=== PATIENT | male | born 1985 | race Caucasian/White ===

== ENCOUNTER 2022-04-05 14:05 | Emergency (ER) | payer OTHER ==
[2022-04-05] MEDS ORDERED: ASPIRIN 81 MG PO STA (14:13)
[2022-04-05] MEDS ORDERED: SODIUM CHLORIDE 0.9% 1,000 ML IV STA ×4 (14:13→17:08)
[2022-04-05] MEDS ORDERED: HEPARIN SODIUM 1,000 UN/ML (10ML VL) IV PRN (14:26)
[2022-04-05] MEDS ORDERED: HEPARIN SODIUM 1,000 UN/ML (10ML VL) IV ONE (14:26)
[2022-04-05] MEDS ORDERED: VERAPAMIL 2.5 MG/ML 2 ML AMP ONE (14:28)
[2022-04-05] MEDS ORDERED: HEPARIN SOD,PORK IN 0.45% NACL 25,000 UNIT in 0.45% NACL 1 250ML.BAG IV SCH ×2 (14:30→16:30)
[2022-04-05 14:32] LABS: Basophils # (A) 0.2 k/uL (0-0.2); Basophils % (A) 1 %; Eosinophils # (A) 0.2 k/uL (0-0.7); Eosinophils % (A) 1 %; HGB 18.7 gm/dL (13.0-17.5); Lymphocytes # (A) 2.9 k/uL (1.0-4.8); Lymphocytes % (A) 9 %; MCH 31.6 pg (25.0-35.0); MCHC 33.6 g/dL (31.0-37.0); Mean Platelet Volume 9.4; Monocytes # (A) 1.5 k/uL (0-1.0); Monocytes % (A) 5 %; Neutrophils % (A) 84 %; Platelet Count 156 k/uL (150-450); RBC 5.93 m/uL (4.30-5.90); RDW 13.8 % (11.5-15.5); WBC 32.3 k/uL (3.8-10.6)
[2022-04-05 14:44] LABS: HCT 55.8 % (39.0-53.0)
[2022-04-05 14:47] LABS: Neutrophils # (A) 27.3 k/uL (1.3-7.7)
--- NOTE | 2022-04-05 14:53 | XR ---
EXAMINATION TYPE: XR chest 1V portable DATE OF EXAM: 04/05/2022 Comparison: None Clinical History: 37-year-old male STEMI, chest pain Findings: Heart upper limits of normal in size. Aorta and pulmonary vasculature within normal limits. No consol idation or pleural effusion. Impression: Borderline heart size. No acute cardiopulmonary process.
--- NOTE | 2022-04-05 14:54 | XR ---
EXAMINATION TYPE: XR chest 1V confirm line [facility] DATE OF EXAM: 04/05/2022 COMPARISON: Earlier today HISTORY: 37-year-old male confirm line placement TECHNIQUE: Single frontal view of the chest is obtained. FINDINGS: Heart remains borderline enlarged. Aorta and pulmonary vasculature within normal limits. H azy peripheral lung densities likely due to portable technique and positioning. Right CVC tip within the right atrium. No consolidation or pleural effusion. No pneumothorax. IMPRESSION: New right CVC tip in the right atrium.
--- NOTE | 2022-04-05 14:54 | XR ---
EXAMINATION TYPE: XR chest 1V confirm line [facility] DATE OF EXAM: 04/05/2022 COMPARISON: Earlier today HISTORY: 37-year-old male confirm line placement TECHNIQUE: Single frontal view of the chest is obtained. FINDINGS: Heart remains borderline enlarged. Aorta and pulmonary vasculature within normal limits. H azy peripheral lung densities likely due to portable technique and positioning. Right CVC tip within the right atrium. No consolidation or pleural effusion. No pneumothorax. IMPRESSION: New right CVC tip in the right atrium.
[2022-04-05 14:59] LABS: Glucose,Whole Blood 90 mg/dL (70-110)
--- NOTE | 2022-04-05 15:01 | ED ---
Chest Pain HPI - General Chief Complaint: Chest Pain Stated Complaint: weakness Time Seen by Provider: 04/05/22 14:06 Source: patient, EMS Mode of arrival: EMS Limitations: physical limitation - History of Present Illness Initial Comments: This 37-year-old male presents with a complaint of some shortness of breath. He is brought in by EMS as priority 1. They state that he was hypotensive with a systolic in the 70s. The patient relates that he has been short of breath and having chest pain for the past one week. He states that the pain in his chest is in the lower sternal region. Both the chest pain and shortness breath or brought on with any minimal exertion. He complains of weakness. He apparently had 4 syncopal episodes earlier today. He denies any leg pain or swelling. He denies any history of DVT or PE. He denies any history of previous cardiac disease. She states that his only medical problems are that of asthma as well as hypertension. There is been no fevers but he has had some chills. No other complaints or modifying factors. He denies any previous similar incidents. He denies any coughing over the past week. He does relate having some night sweats. He admits to utilizing marijuana but denies regular tobacco or alcohol use. - Related Data Home Medications Medication Instructions Recorded Confirmed No Known Home Medications 04/05/22 04/05/22 Allergies Allergy/AdvReac Type Severity Reaction Status Date / Time No Known Allergies Allergy Verified 04/05/22 14:49 Review of Systems ROS Statement: Those systems with pertinent positive or pertinent negative responses have been documented in the HPI. ROS Other: All systems not noted in ROS Statement are negative. General Exam - General Exam Comments Initial Comments: GENERAL: The patient is well nourished and well hydrated. VITAL SIGNS: Heart rate, blood pressure, respiratory rate reviewed as recorded in nurse's notes. EYES: Pupils are round and reactive. Extraocular movements are intact. No conjunctival / lid redness or swelling. ENT: No external evidence of injury, swelling, or ecchymosis. Airway is patent. Throat is clear. NECK: Nontender. No swelling or evidence of injury. No subcutaneous emphysema. Trachea is midline. No thyroid mass. HEART: Regular rate and rhythm. Good peripheral pulses. LUNGS/CHEST: Breath sounds clear and equal bilaterally. No rales, rhonchi, or wheezes. No ecchymosis, subcutaneous emphysema, or tenderness. The patient is tachypneic. ABDOMEN: Abdomen soft without tenderness. No palpable masses or organomegaly. No peritoneal signs. No abdominal wall swelling or ecchymosis. EXTREMITIES: No extremity tenderness. Normal muscle tone and function. No thoracolumbar tenderness. NEUROLOGIC: Sensation is grossly intact. Cranial nerve exam reveals face is symmetrical, tongue is midline, speech is clear. SKIN: No abrasions or ecchymosis is noted. No induration or masses noted. Mild bluish hue noted to bilateral hands. PSYCHIATRIC: Alert and oriented. Appropriate behavior and judgment. Limitations: physical limitation Course Vital Signs 04/05/22 04/05/22 04/05/22 14:09 14:14 14:19 Temperature Pulse Rate 75 77 79 Respiratory 20 22 22 Rate Blood Pressure 107/62 106/89 112/54 O2 Sat by Pulse 98 100 99 Oximetry 04/05/22 04/05/22 04/05/22 14:30 14:51 15:24 Temperature Pulse Rate 75 75 77 Respiratory 22 22 18 Rate Blood Pressure 111/59 115/44 116/67 O2 Sat by Pulse 98 100 95 Oximetry 04/05/22 04/05/22 04/05/22 15:27 16:13 16:22 Temperature 96.4 F L Pulse Rate 82 84 Respiratory 18 20 Rate Blood Pressure 117/85 O2 Sat by Pulse 99 Oximetry 04/05/22 04/05/22 16:23 16:29 Temperature Pulse Rate 86 Respiratory 18 Rate Blood Pressure O2 Sat by Pulse 94 L Oximetry Chest Pain MDM - MDM The patient was seen and examined. All diagnostics are reviewed. EKG as reviewed per EMS which does show some ST depression in leads V3 through V5. The patient has a sinus rhythm on this EKG. The EKG in the emergency department shows a normal sinus rhythm at a rate of 72. There is ST depression in leads V2 through V5 consistent with posterior myocardial infarction. The patient also has some ST depression and T-wave inversion in the inferior leads. The NC intervals 155, QS duration is 134, and the QTC intervals 492. The patient is placed on the forest resource specialist. Oxygen is applied. Defibrillator pads are in place. The nursing staff had multiple attempts at placement of IV and these were unsuccessful. It is felt as though patient needs emergent central venous line placement. Risks benefits are discussed and he is agreeable. The patient was prepped and draped in the usual sterile fashion. Under strict health information technician nique, the patient had lidocaine injected into the subclavian region. The subclavian vein was cannulated on first attempt. The line was placed without incident. Initial x-ray does not show any acute processes. The repeat x-ray shows excellent placement is no evidence of pneumothorax. No pneumonia is identified. The possibility of some cardiomegaly is suspected per my review x- ray. A STEMI alert is placed. Cardiology does present and does not feel as though patient is having a STEMI. They do not recommend emergent heart catheterization. Patient receives aspirin as well as heparin intravenously. The did order an echocardiogram which does show some evidence of right heart strain. The patient's laboratory does show multiple abnormalities including significant elevation of the white blood cell count at 32,000, troponin is elevated, liver function studies are elevated, d-dimer is elevated, and acute kidney injury is evident, potassium is elevated. Urinalysis does not show any evidence of infection. The patient does receive Rocephin intravenously empirically. It is felt as though he likely does have an infection but the exact cause is not definitively determined. He potentially could have pneumonia that is not identifiable on the x-ray. He potentially could have bacteremia. His drug screen came back positive for amphetamines and methamphetamines. The patient denies any other drug usage other than marijuana. Other infectious etiologies certainly are possible. Case was rediscussed with Dr. Mclean from cardiology in their consult is appreciated and they do recommend pulmonology and infectious disease to be consult. Case is discussed with Dr. Ledbetter and he also recommends adding vancomycin, a one-time dose. He also recommends venous Doppler studies of lower extremity and these are added. The patient did not have the CTA of the chest is patient has a GFR of 27. This was canceled and a VQ scan will be ordered. Attempts were made at titrating down his oxygen to a nasal cannula but his oxygen level dropped down into the 80s. He is continued on the nonrebreather. The patient's blood pressure did drop down again into the 80s systolic and additional IV fluids are given. Case is discussed with Dr. King from internal medicine and he is agreeable with admission. Patient will be admitted to the intensive care unit. Approximately 60 minutes of cri tical care time is utilized and treatment the patient and this does not include time necessary for the procedure. Disposition Clinical Impression: Chest pain, Dyspnea, Syncope, Acute kidney injury, Hepatic failure, Leukocytosis, Acute electrocardiogram changes, Elevated troponin, Hyperkalemia, Hypotension, Dehydration, Acute respiratory failure, Elevated d-dimer, Methamphetamine abuse, Amphetamine abuse, Marijuana abuse Disposition: ADMITTED IP TO THIS HOSP Condition: Serious Is patient prescribed a controlled substance at d/c from ED?: No Referrals: None,Stated [Primary Care Provider] - 1-2 days Time of Disposition: 16:49 Decision Date: 04/05/22 Decision Time: 16:49
[2022-04-05 15:14] LABS: ABG Base Excess -13.3 mmol/L; ABG HCO3 14 mmol/L (21-25); ABG Oxygen Saturation 99.2 % (94-97); ABG PCO2 30 mmHg (35-45); ABG PH 7.27 (7.35-7.45); ABG PO2 178 mmHg (83-108); ABG TCO2 15 mmol/L (19-24)
--- NOTE | 2022-04-05 15:19 | P.CRDCN ---
History of Present Illness Consult date: 04/05/22 History of present illness: I recieved STEMI alert call on this patient at 2:20 PM. I spoke to the ER physician- was told patient is having posterior wall myocardial infarction and that the STEMI team has been activated. I asked cardiology nurse practitioner to evaluate the patient in the ER. Following evaluation she told me that she did not see any significant ST segment elevation. I went to the emergency room and evaluated the patient. There was no evidence of STEMI and hence I cancelled the STEMI alert. patient presented to the hospital with symptoms of not feeling well shortness of breath weakness and generalized body aches. He had loss of appetite. Stated that he did not eat anything since lunch the day before. He was in respiratory distress and had a nonrebreather on. Initially he was hypotensive but at the time of my evaluation his blood pressure has improved. Symptoms have been going on for more than a week. His mother and father were in the emergency room and on talking to the mother and found out the patient was also having chills. patient did not have any known cardiac history. Apparently was diagnosed with hypertension recently been started on some medication and his blood pressure became too low. On exam he did not have a murmur, there were occasional rhonchi bilaterally and his extremities appear cyanotic. I told the ER physician that we are not dealing with an acute coronary syndrome. we should await his initial workup and continue with supportive care. I requested a drug screen,covid test , and echo cardiogram to assess LV function. I received a page from the ER physician at 3.30 PM about patient's labs. Patient had elevated creatinine suggestive of acute renal failure, elevated d-dimer, elevated troponin and elevated white cell count. his liver enzymes were elevated. His white cell count is over 30. his drug screen is positive for methamphetamines. I requested the ER physician to consult pulmonary critical care physician for further care, consider a VQ scan if patient is clinically stable and continue IV heparin. An echocardiogram showed preserved LV function with enlarged right ventricle. HISTORY OF PRESENT ILLNESS: This is a 37-year-old male with a past medical history significant for hypertension, asthma, and marijuana use. Patient does not follow with a firefighter. We have been asked to see the patient in consultation for STEMI. Patient examined at the bedside in the ER after a STEMI alert was activated. Patient states he has been feeling unwell. He reports some intermittent chest pains over the past two weeks. However, he denies having chest pain today or at the time of my examination. He does report shortness of breath and is currently on a nonrebreather. He also reports weakness and body aches at home. He reports chills but no fever. He reports decreased appetite. He reports using marijuana. He denies any other drug use. Denies alcohol or nicotine dependence. Patient was found to be hypotensive on admission. WBC found to be elevated at 32. * EKG reveals sinus mechanism with ST depression and TWI in inferior leads, along with V2-V5. Repeat EKG reveals improvement in ST depression. * Chest xray heart remains borderline enlarged. aorta and pulmonary vasculature within normal limits. * Laboratory data: WBC 32.3. Hemoglobin 18.7. Platelet count 156. Additional lab results are currently pending. REVIEW OF SYSTEMS: At the time of my exam: CONSTITUTIONAL: Denies fever or chills. HEENT: Denies blurred vision, vision changes, or eye pain. Denies hemoptysis CARDIOVASCULAR: Denies chest pain. Denies orthopnea. Denies PND. Denies palpitations RESPIRATORY: Denies shortness of breath. GASTROINTESTINAL: Denies abdominal pain. Denies nausea or vomiting. HEMATOLOGIC: Denies bleeding disorders. GENITOURINARY: Denies any blood in urine. SKIN: Denies pruitis. Denies rash. PHYSICAL EXAM: VITAL SIGNS: Reviewed. GENERAL: Well-developed in no mild distress. HEENT: Head is normocephalic. Pupils are equal, round. Sclerae anicteric. Mucous membranes of the mouth are moist. Neck supple. No JVD or thyromegaly LUNGS: Respirations even and unlabored. Lungs diminished with rhonchi noted. HEART: Regular rate and rhythm. S1 and S2 heard. ABDOMEN: Soft. Nondistended. Nontender. EXTREMITIES: Normal range of motion. No clubbing or cyanosis. Peripheral pulses intact. No lower extremity edema. extremities appear cyanotic. NEUROLOGIC: Awake. Oriented x 3. ASSESSMENT: Intermittent chest pains and SOB, x 2 weeks Body aches, weakness, and decreased appetite Abnormal EKG, however no STEMI identified Leukocytosis Acute hypoxic respiratory failure Hypotension History of hypertension History of asthma Marijuana use PLAN: STEMI alert activated. However, EKG and clinical presentation not consistent with STEMI. Will hold off on sending patient to seed analysis laboratory assistant at this time. Check D-Dimer Obtain CT chest Obtain 2D echo to assess cardiac structure and function Continue to trend troponins Check Covid Recommend pulmonary and infectious disease consult Further recommendations pending patient course Nurse practitioner note has been reviewed by physician. Signing provider agrees with the documented findings, assessment, and plan of care. Medications and Allergies Home Medications Medication Instructions Recorded Confirmed Type No Known Home Medications 04/05/22 04/05/22 History Allergies Allergy/AdvReac Type Severity Reaction Status Date / Time No Known Allergies Allergy Verified 04/05/22 14:49 Physical Exam Vitals: Vital Signs Pulse Resp BP Pulse Ox 04/05/22 14:51 75 22 115/44 100 04/05/22 14:30 75 22 111/59 98 04/05/22 14:19 79 22 112/54 99 04/05/22 14:14 77 22 106/89 100 04/05/22 14:09 75 20 107/62 98 Intake and Output 04/04/22 04/05/22 04/05/22 22:59 06:59 14:59 Other: Weight 79.379 kg Results 04/05/22 14:25 04/05/22 17:08 CBC 04/05/22 Range/Units 14:25 WBC 32.3 H (3.8-10.6) k/uL RBC 5.93 H (4.30-5.90) m/uL Hgb 18.7 H (13.0-17.5) gm/dL Hct 55.8 H (39.0-53.0) % Plt Count 156 (150-450) k/uL Current Medications Generic Name Dose Route Start Last Admin Trade Name Freq PRN Reason Stop Dose Admin Heparin Sodium (Porcine) 0 unit 04/05/22 14:26 Heparin Sodium 1,000 Un/Ml (10ml Vl) IV PER PROTOCOL PRN Low PTT Protocol Sodium Chloride 1,000 mls @ 100 mls/hr 04/05/22 14:13 Saline 0.9% IV 04/06/22 00:12 .Q10H STA Sodium Chloride 1,000 mls @ 999 mls/hr 04/05/22 14:13 04/05/22 14:55 Saline 0.9% IV 04/05/22 15:13 999 mls/hr .Q1H1M STA Administration Heparin Sodium/Sodium Chloride 250 mls @ 9.525 mls/hr 04/05/22 14:30 25,000 unit/ Sodium Chloride IV .Q24H [facility] Protocol 12 UNITS/KG/HR Intake and Output 04/04/22 04/05/22 04/05/22 22:59 06:59 14:59 Other: Weight 79.379 kg Patient Weight 04/06/22 06:59 Weight 79.379 kg 04/05/22 14:25
[2022-04-05] MEDS ORDERED: IPRATROPIUM-ALBUTEROL 3 ML NEB INHALATION STA (15:24)
[2022-04-05 15:27] VITALS: TEMP 96.4
[2022-04-05 15:29] LABS: Calcium 8.5 mg/dL (8.4-10.2); Magnesium 2.2 mg/dL (1.6-2.3); Potassium 5.8 mmol/L (3.5-5.1); Total Bilirubin 3.6 mg/dL (0.2-1.3)
[2022-04-05 15:44] LABS: Appearance,Urine Cloudy (Clear); Bilirubin,Urine Negative (Negative); Blood,Urine Trace (Negative); Color,Urine Yellow; Glucose,Urine (UA) Negative (Negative); Hyaline Casts,Urine 93 /lpf (0-2); Ketones,Urine Trace (Negative); Leukocyte Esterase,Urine Negative (Negative); Mucus,Urine Many /hpf; Nitrite,Urine Negative (Negative); Protein,Urine 2+ (Negative); RBC,Urine 3 /hpf (0-5); Specific Gravity,Urine 1.016 (1.001-1.035); Squamous Epithelial Cell,Urine 2 /hpf (0-4); Urobilinogen,Urine <2.0 mg/dL (<2.0); WBC,Urine 4 /hpf (0-5)
[2022-04-05 15:51] LABS: Amphetamine Screen,Urine Detected (NotDetected); Barbiturate Screen,Urine Not Detected (NotDetected); Benzodiazepines Screen,Urine Not Detected (NotDetected); Cocaine Screen,Urine Not Detected (NotDetected); Methadone Screen, Urine Not Detected (NotDetected); Opiate Screen,Urine Not Detected (NotDetected); Oxycodone Screen, Urine Not Detected (NotDetected); Phencyclidine Screen,Urine Not Detected (NotDetected); Tricyclic Antidepressant,Urine Not Detected (NotDetected); Urn Cannabinoid Scrn Detected (NotDetected)
[2022-04-05 15:57] LABS: Partial Thromboplastin Time 106.4 sec (22.0-30.0); Prothrombin Time 20.2 sec (9.0-12.0)
[2022-04-05] MEDS ORDERED: SODIUM BICARB 8.4% 50 ML SYR (1 MEQ/ML) IV ONE (16:22)
[2022-04-05] MEDS ORDERED: SODIUM POLYSTYRENE SULFONATE 15 GM/60 ML BOTTLE PO ONE (16:22)
[2022-04-05] MEDS ORDERED: VANCOMYCIN 1,000 MG in SODIUM CHLORIDE 0.9% 250 ML IVPB STA (16:43)
[2022-04-05] MEDS ORDERED: IPRATROPIUM-ALBUTEROL 3 ML NEB INHALATION PRN (16:57)
[2022-04-05] MEDS ORDERED: ACETAMINOPHEN TAB 325 MG TAB PO PRN (16:57)
[2022-04-05] MEDS ORDERED: NALOXONE 0.4 MG/ML 1 ML VIAL IV PRN (16:57)
[2022-04-05 17:09] VITALS: BP 118/72; PULSE 85; RESP 34
[2022-04-05] MEDS ORDERED: LORazepam 2 MG/ML INJ IV STA ×2 (17:10→17:12)
[2022-04-05] MEDS ORDERED: PANTOPRAZOLE 40 MG/10 ML VIAL IV SCH (17:15)
[2022-04-05] MEDS ORDERED: AMIODARONE 360 MG in DEXTROSE 5% IN WATER 200 ML IV ONE ×2 (17:34)
[2022-04-05] MEDS ORDERED: ALTEPLASE 50 MG VIAL IV STA (17:39)
[2022-04-05] MEDS ORDERED: AMIODARONE 450 MG in DEXTROSE 5% IN WATER 250 ML IV SCH ×2 (23:45)
--- NOTE | 2022-04-06 10:46 | CA ---
Transthoracic Echo Report Name: Lorne Antony Age: 37 Gender: M : 1985 Exam Date: 04/05/2022 15:07 Exam Location: [place] [facility] Ht (in): 67 Wt (lb): 175 Ordering Physician: Lexie Thomas Attending/Referring Phys: Martha Owen;[id number] Route Sales Person Karla Colvin RDCS Procedure CPT: Indications: abnormal EKG, LV function Cardiac Hx: Technical Quality: Good Contrast 1: Total Dose (mL): Contrast 2: Total Dose (mL): MEASUREMENTS (Male / Female) Normal Values 2D ECHO LV Diastolic Diameter PLAX 3.8 cm 4.2 - 5.9 / 3.9 - 5.3 cm LV Systolic Diameter PLAX 2.6 cm IVS Diastolic Thickness 1.6 cm 0.6 - 1.0 / 0.6 - 0.9 cm LVPW Diastolic Thickness 1.5 cm 0.6 - 1.0 / 0.6 - 0.9 cm LV Relative Wall Thickness 0.8 RV Internal Dim ED PLAX 3.9 cm LA Systolic Diameter LX 3.2 cm 3.0 - 4.0 / 2.7 - 3.8 cm M-MODE Aortic Root Diameter MM 3.4 cm AV Cusp Separation MM 2.4 cm DOPPLER AV Peak Velocity 81.8 cm/s AV Peak Gradient 2.7 mmHg MV Area PHT 4.5 cm??? Mitral E Point Velocity 62.5 cm/s Mitral A Point Velocity 55.2 cm/s Mitral E to A Ratio 1.1 MV Deceleration Time 170.0 ms TR Peak Velocity 317.3 cm/s TR Peak Gradient 47.0 mmHg Right Ventricular Systolic Press 47.0 mmHg FINDINGS Left Ventricle Left ventricular ejection fraction is estimated at 55-60%. Moderate concentric left ventricular hypertrophy. Right Ventricle Moderate right ventricular dilatation. Moderate pulmonary hypertension. Right Atrium Normal right atrial size. Left Atrium Normal left atrial size. No evidence for an atrial septal defect. Mitral Valve Structurally normal mitral valve. No mitral stenosis, regurgitation or prolapse. Aortic Valve Trileaflet aortic valve. No aortic valve stenosis or regurgitation. Tricuspid Valve Structurally normal tricuspid valve. [id number] tricuspid regurgitation. Pulmonic Valve Trace pulmonic regurgitation. Pericardium Normal pericardium. No pericardial effusion. Aorta Normal size aortic root and proximal ascending aorta. CONCLUSIONS Left ventricular ejection fraction 55-60% Moderate increased left ventricular wall thickness RVSP 47 Moderate right ventricular dilation Mild to moderate tricuspid regurgitation No pericardial effusion Previewed by: Dr. Jonel Ulloa DO (Electronically Signed) Final Date: 06 April 2022 10:45
--- NOTE | 2022-04-06 10:46 | CA ---
Transthoracic Echo Report Name: Lorne Antony Age: 37 Gender: M : 1985 Exam Date: 04/05/2022 15:07 Exam Location: [place] [facility] Ht (in): 67 Wt (lb): 175 Ordering Physician: Lexie Thomas Attending/Referring Phys: Martha Owen;[id number] Mattress Maker Karla Colvin RDCS Procedure CPT: Indications: abnormal EKG, LV function Cardiac Hx: Technical Quality: Good Contrast 1: Total Dose (mL): Contrast 2: Total Dose (mL): MEASUREMENTS (Male / Female) Normal Values 2D ECHO LV Diastolic Diameter PLAX 3.8 cm 4.2 - 5.9 / 3.9 - 5.3 cm LV Systolic Diameter PLAX 2.6 cm IVS Diastolic Thickness 1.6 cm 0.6 - 1.0 / 0.6 - 0.9 cm LVPW Diastolic Thickness 1.5 cm 0.6 - 1.0 / 0.6 - 0.9 cm LV Relative Wall Thickness 0.8 RV Internal Dim ED PLAX 3.9 cm LA Systolic Diameter LX 3.2 cm 3.0 - 4.0 / 2.7 - 3.8 cm M-MODE Aortic Root Diameter MM 3.4 cm AV Cusp Separation MM 2.4 cm DOPPLER AV Peak Velocity 81.8 cm/s AV Peak Gradient 2.7 mmHg MV Area PHT 4.5 cm??? Mitral E Point Velocity 62.5 cm/s Mitral A Point Velocity 55.2 cm/s Mitral E to A Ratio 1.1 MV Deceleration Time 170.0 ms TR Peak Velocity 317.3 cm/s TR Peak Gradient 47.0 mmHg Right Ventricular Systolic Press 47.0 mmHg FINDINGS Left Ventricle Left ventricular ejection fraction is estimated at 55-60%. Moderate concentric left ventricular hypertrophy. Right Ventricle Moderate right ventricular dilatation. Moderate pulmonary hypertension. Right Atrium Normal right atrial size. Left Atrium Normal left atrial size. No evidence for an atrial septal defect. Mitral Valve Structurally normal mitral valve. No mitral stenosis, regurgitation or prolapse. Aortic Valve Trileaflet aortic valve. No aortic valve stenosis or regurgitation. Tricuspid Valve Structurally normal tricuspid valve. [id number] tricuspid regurgitation. Pulmonic Valve Trace pulmonic regurgitation. Pericardium Normal pericardium. No pericardial effusion. Aorta Normal size aortic root and proximal ascending aorta. CONCLUSIONS Left ventricular ejection fraction 55-60% Moderate increased left ventricular wall thickness RVSP 47 Moderate right ventricular dilation Mild to moderate tricuspid regurgitation No pericardial effusion Previewed by: Dr. Jonel Ulloa DO (Electronically Signed) Final Date: 06 April 2022 10:45
== END 2022-04-05 22:15 | disposition other institution (70) ==
LOC: EC 14:05
DX: J96.00 Acute respiratory failure, unspecified whether with hypoxia or hypercapnia (principal); F15.10 Other stimulant abuse, uncomplicated; K72.00 Acute and subacute hepatic failure without coma; N17.9 Acute kidney failure, unspecified
CPT/HCPCS: 99291; 92950; 36556; 96375; 96365; 96366; 96361; 36415; 94640; 36600; 93005; 93306; 85379; 83880; 80053; 82805; 83605; 83735; 84132; 84484; 85025; 85610; 85730; 81001; 87040; 80306; 87635; 71045; J2997; J1644 ×2; J0282; 37195